=== PATIENT | female | born 1975 | race Caucasian/White ===

== ENCOUNTER → 2016-08-06 | Outpatient (CLI) | payer BC ==
[~2016-08-06] MED LIST: CLON0.5T3 PO; ONDA4TAB7 SL
== END | disposition home or self-care (01) ==
LOC: C.PATHSPEC 11:30
PROVIDERS: ATTEND Obstetrics & Gynecology
DX: R87.611 Atypical squamous cells cannot exclude high grade squamous intraepithelial lesion on cytologic smear of cervix (ASC-H) (principal); N72 Inflammatory disease of cervix uteri; R87.613 High grade squamous intraepithelial lesion on cytologic smear of cervix (HGSIL); R87.612 Low grade squamous intraepithelial lesion on cytologic smear of cervix (LGSIL)

== ENCOUNTER → 2016-09-07 | Outpatient (CLI) | payer BC ==
[2016-09-07 16:38] LABS: BASO % 0.5 %; BASO ABS # 0.04 K/uL (0-0.2); COMPLETE YES; EOS % 1.5 %; IG% 0.1 %; LYMPH % 35.1 %; LYMPH ABS # 2.58 K/uL (1.2-3.4); MEAN CELL VOLUME 86.5 fL (80-100); MEAN CORPUSCULAR HEMOGLOBIN 29.3 pg (25-34); MEAN CORPUSCULAR HGB CONC 33.9 g/dl (32-36); MEAN PLATELET VOLUME 9.4 fL (7.4-10.4); MONO % 7.1 %; NEUT % 55.7 %; PLATELET COUNT 240 K/uL (130-400); RED BLOOD COUNT 4.16 M/uL (4.2-5.4); WHITE BLOOD COUNT 7.35 K/uL (4.8-10.8)
[2016-09-07 17:01] LABS: ALT/SGPT 18 U/L (12-78); AST/SGOT 16 U/L (15-37); BLOOD UREA NITROGEN 12 mg/dl (7-18); BUN/CREATININE RATIO 18.5 (10-20); CARBON DIOXIDE 28 mmol/L (21-32); CHLORIDE 107 mmol/L (98-107); CREATININE 0.67 mg/dl (0.60-1.20); GLUCOSE 99 mg/dl (70-99); POTASSIUM 4.4 mmol/L (3.5-5.1); SODIUM 142 mmol/L (136-145)
[2016-09-07 17:04] LABS: ALB/GLOB RATIO 1.1 (0.9-2); ALKALINE PHOSPHATASE 61 U/L (45-117)
== END | disposition home or self-care (01) ==
LOC: C.LAB 15:44
PROVIDERS: ATTEND Obstetrics & Gynecology Gynecologic Oncology
DX: Z01.818 Encounter for other preprocedural examination (principal)

== ENCOUNTER → 2016-12-15 | Outpatient (CLI) | payer BC ==
--- NOTE | 2016-12-15 14:11 | DIAGNOSTIC IMAGING REPORT ---
CERVICAL SPINE 4 OR 5 VIEWS CLINICAL HISTORY: Posterior neck pain status post trauma COMPARISON STUDY: No previous studies for comparison. FINDINGS: The prevertebral soft tissues are normal. No fractures or subluxations are visualized. The bony neural foramina appear patent bilaterally. IMPRESSION: Unremarkable conventional radiographic evaluation of the cervical spine Electronically signed by: Fernando Majano M.D. 12/15/2016 2:09 PM Dictated Date/Time: 12/15/2016 2:09 PM
== END | disposition home or self-care (01) ==
LOC: C.RDSM 13:24
PROVIDERS: ATTEND Family Medicine
DX: M54.2 Cervicalgia (principal)

== ENCOUNTER → 2018-02-11 | Outpatient (CLI) | payer OTHER ==
[~2018-02-11] MED LIST changes: -CLON0.5T3 PO; +KLN/5 PO
[2018-02-11 17:40] LABS: BASO % 0.4 %; BASO ABS # 0.03 K/uL (0-0.2); EOS % 1.8 %; EOS ABS # 0.13 K/uL (0-0.5); HEMATOCRIT 38.7 % (37-47); HEMOGLOBIN 12.9 g/dL (12.0-16.0); IG# 0.01 K/uL (0.00-0.02); LYMPH % 35.9 %; LYMPH ABS # 2.63 K/uL (1.2-3.4); MEAN CELL VOLUME 88.2 fL (80-100); MEAN CORPUSCULAR HEMOGLOBIN 29.4 pg (25-34); MEAN CORPUSCULAR HGB CONC 33.3 g/dl (32-36); MEAN PLATELET VOLUME 9.6 fL (7.4-10.4); MONO % 10.2 %; MONO ABS # 0.75 K/uL (0.11-0.59); NEUT % 51.6 %; NEUT ABS # 3.78 K/uL (1.4-6.5); PLATELET COUNT 250 K/uL (130-400); RED CELL DISTRIBUTION WIDTH CV 14.2 % (11.5-14.5); RED CELL DISTRIBUTION WIDTH SD 46.1 fL (36.4-46.3); WHITE BLOOD COUNT 7.33 K/uL (4.8-10.8)
== END | disposition home or self-care (01) ==
LOC: C.LAB1850 16:56
PROVIDERS: ATTEND Obstetrics & Gynecology
DX: O02.1 Missed abortion (principal)

== ENCOUNTER → 2018-02-21 | Outpatient (CLI) | payer OTHER | END | disposition home or self-care (01) | LOC: C.LAB1850 12:26 | PROVIDERS: ATTEND Obstetrics & Gynecology | DX: O02.1 Missed abortion (principal) ==

== ENCOUNTER → 2018-03-01 | Outpatient (CLI) | payer OTHER | END | disposition home or self-care (01) | LOC: C.LAB1850 16:43 | PROVIDERS: ATTEND Obstetrics & Gynecology | DX: O20.9 Hemorrhage in early pregnancy, unspecified (principal) ==

== ENCOUNTER 2020-04-12 06:00 | Observation (INO) ==
--- NOTE | 2020-03-19 09:21 | PAT Medication Instructions ---
Medication Instructions Date of Service March 19, 2020 Home Medications multivitamin 1 cap PO QAM escitalopram oxalate 10 mg tablet 5 mg PO QPM DO NOT take the morning of surgery multivitamin 1 cap PO QAM Take evening before surgery escitalopram oxalate 10 mg tablet 5 mg PO QPM Other Notes If you have any questions please call us at [phone] or [phone] or [phone] or [phone]
--- NOTE | 2020-03-20 15:50 | Anesthesiology Consultation ---
Date of Service March 20, 2020 Assessment & Plan (1) Encounter for pre-operative examination: - Per assessment on 03/20: Travel screen negative. No known COVID-19 positive contacts or current COVID-19 related symptoms. Surgeon arranging preop COVID testing (scheduled 04/09, plan to be done at [place]). Awaiting results. - Check test AM DOS Chart Review Chart Review: Acceptable Risk for Surgery and Patient seen in Pre Admission Testing Teaching & Discussion Pre-Anesthesia Teaching/Discussion Notes: Instructed NPO after midnight before surgery,except medications with 15 cc of water. Medication instructions provided according to the PAT guidelines. History Surgery Operation Date: 04/12/20 08:50 Proposed Procedures p Robotic Total Laparoscopic Hysterectomy - Tamara Gaspar MD, FACOG Height/Weight Height: 5 ft 5 in Weight: 59.9 kg Allergies Allergy/AdvReac Type Severity Reaction Status Date / Time No Known Allergies Allergy Verified 03/20/20 15:04 Medications Home Medications Medication Instructions Recorded Confirmed Last Taken multivitamin 1 cap PO QAM 10/25/18 03/20/20 12/20/18 escitalopram oxalate 10 mg tablet 5 mg PO QPM tab 01/08/20 03/20/20 Unknown Past Medical History Medical History Anxiety Depression Eczema Meniere's disease of right ear Migraine Severe cervical dysplasia, histologically confirmed Exercise / Class Metabolic Activity II 4-5 Yardwork/Stairs/Walk up hill Past Family History Family History Mother Family history of reaction to anesthesia nausea/vomiting Family hx colonic polyps Anxiety Grandmother (Maternal) Family hx of colon cancer Father Family hx colonic polyps Anxiety Sister Anxiety Past Surgical History Surgical History H/O LEEP 2016 History of appendectomy History of colonoscopy History of colposcopy History of rhinoplasty History of surgery VESITIBULAR NERVE SECTION WITH RIGHT CRANIOTOMY (2012) TX FOR MENIERE DISEASE Status post hysteroscopic polypectomy [email or web address] Past Anesthesia History No Hx of Anesthesia Complications (except post-op nausea) Mother- post-op nausea History of PONV History of PONV (+ nausea) and Hx of Motion Sickness Social History Smoking Status: Never smoker Do You Dip or Chew Tobacco: No Hx Alcohol Use: Yes Alcohol type: wine alcohol intake frequency: holidays/special occasions only Hx Substance Use: No substance use type: does not use Review of Systems Patient denies chest pain, shortness of breath, dyspnea on exertion, fever, chills, cough, wheezing, palpitations. Physical Exam Vital Signs VITALS BP 99/61 (per patient, chronic low BP's in the 90's/60's) P 84 TEMP 98.7 SP02 96%RA RESP 16 PHYSICAL Full neck and c-spine range of motion. Full TMJ range of motion. TMD 3.5 finger breaths Mallampati Score 1 Dentition: intact, + crown (plan for crown prior to surgery approximately 03/29- surgeon's office made aware) Lungs: clear throughout to auscultation Cardiac: regular rate and rhythm, no murmurs noted Spine: normal Extremities: no edema Testing Laboratory Results 03/20/20 16:11 Blood Type O Positive 03/20/20 16:11 Antibody Screen NEGATIVE 03/20/20 16:11
[2020-03-20 16:30] LABS: Basophils # (auto) 0.03 K/uL (0-0.2); Basophils % (auto) 0.5 %; Eosinophils # (auto) 0.09 K/uL (0-0.5); Eosinophils % (auto) 1.5 %; Hematocrit (blood only) 38.9 % (37-47); Hemoglobin 12.9 g/dL (12.0-16.0); Immature Granulocytes # (auto) 0.01 K/uL (0.00-0.02); Immature Granulocytes % (auto) 0.2 %; Lymphocytes # (auto) 2.73 K/uL (1.2-3.4); Lymphocytes % (auto) 45.2 %; Mean Corpuscular Hemoglobin 30.2 pg (25-34); Mean Corpuscular Hgb Conc 33.2 g/dL (32-36); Mean Corpuscular Volume 91.1 fL (80-100); Mean Platelet Volume 9.1 fL (7.4-10.4); Monocytes # (auto) 0.47 K/uL (0.11-0.59); Monocytes % (auto) 7.8 %; Neutrophils # (auto) 2.71 K/uL (1.4-6.5); Neutrophils % (auto) 44.8 %; Platelet Count 260 K/uL (130-400); RDW Coefficient of Variation 12.1 % (11.5-14.5); RDW Standard Deviation 40.5 fL (36.4-46.3); Red Blood Count 4.27 M/uL (4.2-5.4); White Blood Count 6.04 K/uL (4.8-10.8)
[~2020-04-12 06:00] MED LIST changes: +CEFAZOLIN 2000MG 2,000 MG/15 ML SYR IV SCH; -KLN/5 PO; +LACTATED RINGER'S 1,000 ML IV SCH; -ONDA4TAB7 SL; +PHENAZOPYRIDINE HCL 200 MG TAB PO SCH
[2020-04-12] MEDS ORDERED: MIDAZOLAM HCL 1 MG/ML 2ML VIAL ONE (06:52)
[2020-04-12] MEDS ORDERED: fentaNYL citrate 100 MCG/2 ML VIAL ONE (06:52)
[2020-04-12] MEDS ORDERED: ACETAMINOPHEN 1000 MG/100 ML IV IV ONE (06:58)
[2020-04-12] MEDS ORDERED: SCOPOLAMINE 1.5 MG TDSY TD ONE ×2 (06:58→06:59)
[2020-04-12] MEDS ORDERED: ATROPINE SULFATE 0.1 MG/ML 10ML SYR IV PRN (06:59)
[2020-04-12] MEDS ORDERED: fentaNYL citrate 100 MCG/2 ML VIAL IV PRN (06:59)
[2020-04-12] MEDS ORDERED: ePHEDrine sulfate 50 MG/ML AMP IV PRN (06:59)
[2020-04-12] MEDS ORDERED: ROCURONIUM BROMIDE 10 MG/ML 5 ML VIAL IV ONE ×4 (06:59)
[2020-04-12] MEDS ORDERED: PROPOFOL IV EMULSION 10 MG/ML 20 ML VIAL IV ONE (06:59)
[2020-04-12] MEDS ORDERED: ONDANSETRON INJ 2 MG/ML 2 ML VIAL IV PRN ×2 (06:59→10:13)
[2020-04-12] MEDS ORDERED: LIDOCAINE HCL 2% 2 ML VIAL/AMP(20MG/ML) INFIL ONE (06:59)
[2020-04-12] MEDS ORDERED: ONDANSETRON INJ 2 MG/ML 2 ML VIAL ONE ×2 (07:01→09:30)
[2020-04-12] MEDS ORDERED: DEXAMETHASONE SOD INJ 4 MG/ML VIAL ONE (07:01)
[2020-04-12 07:02] LABS: Pregnancy Test, Serum Negative (Negative)
--- NOTE | 2020-04-12 07:09 | History & Physical Bridge Note ---
Date of Service April 12, 2020 History & Physical Bridge Note I have examined the patient, reviewed the History & Physical and in the interval since the performance of the History & Physical I have noted the following changes of clinical significance: no changes noted
[2020-04-12] MEDS ORDERED: NEOSTIGMINE METHYLSULFATE 5 MG/5 ML SYR ONE (08:22)
[2020-04-12] MEDS ORDERED: GLYCOPYRROLATE 0.2 MG/ML VIAL ONE (08:22)
[2020-04-12] MEDS ORDERED: SURGICEL ABSORB HEMOSTAT 2IN X 14IN TOP ONE (09:15)
[2020-04-12] MEDS ORDERED: BUPIVACAINE 0.5 % 5 MG/1 ML MPF 30ML VIAL INJ ONE (09:16)
[2020-04-12] MEDS ORDERED: FLOSEAL HEMOSTATIC MATRIX 10ML TOP ONE (09:21)
--- NOTE | 2020-04-12 09:41 | Post Operative Brief Note ---
PG Immediate Post Op with CF Date of Surgery April 12, 2020 Pre & Post Diagnosis Operation Date: 04/12/20 07:30 Pre-Op Diagnosis: Abnormal Uterine Bleeding, Menometrorrhagia Post-Op Diagnosis: Abnormal Uterine Bleeding,Menormetrorrhagia I identified the patient and participated in the time-out.: Yes Procedure Operation Date: 04/12/20 07:30 Actual Procedures p Robotic Assisted Total Laparoscopic Hysterectomy Bilateral Salpingectomy with Cystoscopy(Not Applicable) - Tamara Gaspar MD, FACOG Surgeon Tamara Gaspar MD, FACOG Meat Counter Worker RN Estimated Blood Loss 50 Findings Consistent with Post-Op Diagnosis (small bowel adhesions to right uterus and right anterior abdominal wall as well as omental adhesions to right lower quadrant. normal tubes and ovaries bilaterally. normal uterus, normal liver edge and gallbladder. cysto findings with normal bladder filling and normal ureteral jets ) Fluids 700 Specimens Specimen Description: Permanent Specimen A: Uterus, Cervix and bilateral Fallopian Tubes (Please Compare the Pathology from , which shows Placenta Tissue) Drains Jacinto Catheter (18fr inserted at start of case by Dr. Gaspar without difficulty, changed at end post cystoscopy. anesthesia monitoring output during case) Anesthesia Type General Complications none Disposition Accompanied Patient To Recovery: No Disposition: Recovery Room
--- NOTE | 2020-04-12 09:52 | Operative Report ---
PG Post Operative Report Pre & Post Diagnosis Operation Date: 04/12/20 07:30 Pre-Op Diagnosis: Abnormal Uterine Bleeding, menometrorrhagia Post-Op Diagnosis: Abnormal Uterine Bleeding, menometrorrhagia I identified the patient and participated in the time-out.: Yes Procedure Operation Date: 04/12/20 07:30 Actual Procedures Robotic Assisted Total Laparoscopic Hysterectomy, Bilateral Salpingectomies, Cystoscopy, Lysis of adhesions. Surgeon Tamara Gaspar MD, FACOG Geodesy Teacher RN Estimated Blood Loss 50 Findings Consistent with Post-Op Diagnosis (small bowel adhesions to right uterus and right anterior abdominal wall as well as omental adhesions to right lower quadrant. normal tubes and ovaries bilaterally. normal uterus, normal liver edge and gallbladder. cysto findings with normal bladder filling and normal ureteral jets ) Fluids 700 Specimens uterus, cervix and bilateral fallopian tubes Drains guillermo Anesthesia Type General Complications none Disposition Accompanied Patient To Recovery: No Disposition: Recovery Room Indications 45yo with cc of aub and menometrorrhagia who desires definitive surgical management. This has been for more than one year. She declines do nothing, medications, hormone iud as options. Due to her persistent metrorrhagia I did not favor an endometrial ablation for her. She opts for hysterectomy. Of note on prior D&C done for these symptoms in december 2018, there was mention of possible old/necrotic placental site tissue. Description of Procedure The patient was taken to the operating room and identified. After adequate general anesthesia was obtained she was placed in the dorsolithotomy position and prepped and draped in the usual sterile fashion. Attention was turned to the patient's vagina where a weighted speculum and anterior retractor were used to visualize the cervix. The cervix was grasped on its anterior lip with an allis clamp. A single interrupted suture of 0-vicryl was placed at the 3 o'clock position and tied down. The uterus sounded to 7cm. The V-Care uterine manipulator was placed through the cervical os into the uterine cavity and the balloon was inflated. The cup was tied down against the cervix with the suture material and the stabilizing cup was placed. A guillermo catheter had already been placed under sterile conditions. The retractors were removed and attention was then turned to the patient's abdomen. The scalpel was used to make a supraumbilical skin incision and the veress needle was placed intraperitoneally with an opening pressure of 4mm Hg. A CO2 pneumoperitoneum was created. The 12mm optical trocar attached to the laparoscope was then placed intraperitoneally and the patient was placed in steep Trendelenburg. The pelvis and abdomen were inspected with the findings as noted above. The adhesions of the small bowel and omentum on the right mid pelvis was in area that right trocar woud need to be placed. A left Da Anuj trocar sites was created on the left of the midline by first make skin incisions with the scalpel and then placing under direct visualization a Da Anuj trocar. A blunt probe was used to move the bowel away from the planned operative sites. Using the scissor with cautery adhesions were taken down with care both bluntly and sharply to allow to space on right anterior mid wall to introduce trocar. Once that was accomplished a second Da Anuj trocar was placed after making a skin incision under direct visualization. This was a little more medial that typical due to remaining adhesions involving the small bowel that were not taken down. The laparoscope was removed and the Da Anuj Robot was brought to the patient's bedside. The appropriate arms were connected to the appropriate trocars. The camera was introduced. The monopolar edin and the fenestrated bipolar instruments were brought through instrument arms #1 and #2 respectively under direct visualization. The surgeon then went to the console. The uterus was elevated and filmy adhesions attaching small bowel to right side of uterus were taken down. Also with blunt dissection the right adnexal area was uncovered. Using manipulation from below the right uterine ovarian/fallopian tube/round ligament complex was identified. The ureter was seen coursing well below the planned operative site. The mesosalpinx on the right was opened up into to transect the fallopian tube to its fimbriated end. This uterine ovarian/round ligament complex was coagulated and transected gradually with the bipolar cautery followed by the monopolar edin. The anterior and posterior leaves of the broad ligament were opened and the bladder flap was begun anteriorly towards the anterior midline. The uterine artery pedicle was bluntly skeletonized. With the bladder well away from the planned operative sites, the uterine artery pedicle was cauterized. Attention was then turned to the left fallopian tube which was dissected from mesosalpinx from the fimbriated end to the cornua. The uterine ovarian/round ligament complex which was identified and sequentially cauterized and cut in a similar manner. The broad ligament leaves were opened up on this side and a bladder flap was created from this side meeting in the midline anteriorly. The bladder was pushed away bluntly from the planned colpotomy site. The uterine artery pedicle was skeletonized on this side and the vessels were coagulated. The were then transected and sequentially the cardinal ligament attachments were also coagulated and cut. The pedicle was pushed well away from the planned colpotomy. Attention was returned to the right uterine artery pedicle which was then re-cauterized and cut sequentially and the cardinal l igament attachments were also coagulated and transected. The bladder had been dissected and pushed well away from the planned colpotomy site. The uterus was raised and the colpotomy was begun posteriorly and carried around circumferentially to transect the cervix from the upper vagina. The specimen was then brought out vaginally and a sponge was placed in the vagina to maintain the pneumoperitoneum. Operative sites were oozing at cuff and bleeding sites were coagulated. The monopolar edin were replaced with a large needle service car driver and the 2-0 V-Lock 90 suture was brought through the vagina. The cuff was closed in a routine fashion with this suture material and back sutures were placed. The sponge was removed from the vagina and the pneumoperitoneum was maintained. The suture material was cut and the needle was removed from the abdomen through instrument arm #1. After the needle was removed the suction manager trade marketing was brought through the right trocar and the pelvis was irrigated and the operative sites were hemostatic. The pneumoperitoneum was let down and some oozing from left cuff area noted. Russel-seal 10cc placed. The cystoscopy was then performed with the findings as noted above and a new guillermo catheter was placed. The camera and all laparoscopic instruments were removed and the robot was then undocked and moved away from the patient's bedside. The CO2 gas was allowed to escape from the patient's abdomen. The trocars were removed. The supraumbilical tissues were reapproximated with 0 vicryl and all skin incisions were closed with 4-0 vicryl in a subcuticular fashion. The incisions were injected with marcaine and dressed with band-aids. At this point the procedure was terminated. The patient was returned to the supine position and transported to the recovery room in sta ble condition. All sponge lap and needle counts were correct x 2. I attest to the content of the Intraoperative Record and any orders documented therein. Any exceptions are noted below. SALES AND EVENTS COORDINATOR Major Procedure Codes Hysterectomy 49791 TLH <250g +S/O Miscellaneous [id number] Cystoscopy
[2020-04-12] MEDS ORDERED: MEPERIDINE HCL 25 MG/ML CARP/VIAL IV STA (09:54)
[2020-04-12] MEDS ORDERED: MEPERIDINE HCL 25 MG/ML CARP/VIAL ONE (09:55)
[2020-04-12] MEDS ORDERED: PROMETHAZINE HCL 12.5 MG in SODIUM CHLORIDE 0.9% 50 ML IV PRN (10:13)
[2020-04-12] MEDS ORDERED: IBUPROFEN 600 MG TAB PO PRN (10:13)
[2020-04-12] MEDS ORDERED: ACETAMINOPHEN 325 MG TAB PO PRN (10:13)
[2020-04-12] MEDS ORDERED: ZOLPIDEM TARTRATE 5 MG TAB PO PRN (10:13)
[2020-04-12] MEDS ORDERED: KETOROLAC 30 MG/ML VIAL IV PRN (10:13)
[2020-04-12] MEDS ORDERED: SIMETHICONE 80 MG CHEW PO PRN (10:13)
[2020-04-12] MEDS ORDERED: OXYCODONE/ACETAMINOPHEN 5mg/325mg TAB PO PRN ×2 (10:13)
[2020-04-12] MEDS ORDERED: LACTATED RINGER'S 1,000 ML IV SCH (10:15)
--- NOTE | 2020-04-12 10:49 | Anesthesiology Progress Note ---
Date of Service April 12, 2020 Anesthesia Post Procedure Vital Signs Vital Signs: Temp Pulse Pulse Resp BP BP Pulse Ox 04/12/20 10:35 63 16 123/66 100 04/12/20 10:25 98.1 F 61 12 128/68 100 04/12/20 10:15 62 12 121/69 100 04/12/20 10:05 66 12 101/69 100 04/12/20 09:55 69 15 122/76 100 04/12/20 09:48 97.0 F L 83 20 112/96 93 04/12/20 06:22 98.6 F 75 18 113/84 97 Pain Intensity Lower Abdomen: Pain Intensity: 4 Transfer of Care Handoff Completed per policy Notes Mental Status: alert / awake / arousable and participated in evaluation Patient Amnestic to Procedure: Yes Nausea / Vomiting: adequately controlled Pain: adequately controlled Airway Patency, RR, SpO2: stable & adequate BP & HR: stable & adequate Hydration State: stable & adequate Anesthetic Complications: no major complications apparent and Pt Satisfied with anesthetic care
[2020-04-12] MEDS ORDERED: CHECK SCOPOLAMINE PATCH PLACEMENT SCH (16:00)
--- NOTE | 2020-04-12 17:13 | Gynecologic Progress Note ---
Date of Service April 12, 2020 Assessment & Plan (1) Menometrorrhagia: (2) Abnormal uterine bleeding (AUB): (3) Post-operative state: reviewed with patient findings at surgery including bowel adhesions. explained course of procedure and showed pt images of her abdomen on computer. reviewed expected postop course and recovery. postop appt was already made and pt reminded of date and time and put in D/C instructions. sent some percocet to pharm and explained use of pain meds and possible SE. patient given time to ask questions and answered to the best of my ability. she had not voided yet but as noted was tolerating liquids. she spoke to her spouse while i was in room. she denied further questions or concerns and asked about criteria for discharge. they were reviewed. just now, called nurse to see her progress but she was unavailable. then received [facility] message also just now and she noted pt doing well, voided, ambulated, eating and not requiring pain meds. Admission and Anticipated Discharge Date Admission Date: April 12, 2020 Subjective Late entry -visted pt in room postop about 2pm today. was doing well. had some nausea but trying to drink water and juice and lorena so far. no pain issues. Physical Exam Constitutional: WD/WN, vitals as above Results & Data ([facility]) Vital Signs (Past 12 Hours) Vital Signs Temp Pulse Pulse Pulse Resp BP BP 04/12/20 14:00 66 18 110/68 04/12/20 13:00 66 18 114/69 04/12/20 12:00 69 16 132/72 04/12/20 11:30 73 16 120/74 04/12/20 11:00 98.2 F 65 16 120/76 04/12/20 10:35 63 16 123/66 04/12/20 10:25 98.1 F 61 12 128/68 04/12/20 10:15 62 12 121/69 04/12/20 10:05 66 12 101/69 04/12/20 09:55 69 15 122/76 04/12/20 09:48 97.0 F L 83 20 112/96 04/12/20 06:22 98.6 F 75 18 113/84 Pulse Ox 04/12/20 14:00 99 04/12/20 13:00 04/12/20 12:00 99 04/12/20 11:30 100 09/25/20 11:00 04/12/20 10:35 04/12/20 10:25 04/12/20 10:15 04/12/20 10:05 04/12/20 09:55 04/12/20 09:48 04/12/20 06:22 97 PG Care Time/CCT Total # of Minutes Spent Total Time Spent with Patient: Total time spent is greater than 50% in coordination of care (as documented) at patient's floor/unit and/or counseling patient: Coding Level of Care Code None Diagnoses Menometrorrhagia N92.1 Abnormal uterine bleeding (AUB) N93.9 Post-operative state Z98.890
--- NOTE | 2020-04-13 10:04 | Discharge Summary ---
Date of Service Date of admission: April 12, 2020 Date of discharge: April 12, 2020 Discharge Data Procedures Performed Operation Date: 04/12/20 07:30 Actual Procedures p Robotic Assisted Total Laparoscopic Hysterectomy Bilateral Salpingectomy (Not Applicable) - Tamara Gaspar MD, FACOG s with Cystoscopy(Not Applicable) - Tamara Gaspar MD, FACOG Hospital Course (1) Abnormal uterine bleeding (AUB): (2) Menometrorrhagia: Patient was admitted and underwent the above stated procedures. Please see her H&P for more detail. The procedures were performed without incident. Her postop recovery and course were uncomplicated and on POD #0 she was stable for discharge to home. She was tolerating a regular diet, voiding and ambulating without difficulty and her pain was well controlled on oral pain medications. Her instructions were reviewed and followup reviewed which was planned for approximately 2 weeks. She was sent appropriate pain medicine scripts to her pharmacy. Coding Level of Care Code None Diagnoses Abnormal uterine bleeding (AUB) N93.9 Menometrorrhagia N92.1
== END 2020-04-12 18:45 | disposition home or self-care (01) ==
LOC: ASU 06:00 → 4N 06:00
DX: H81.01 Meniere's disease, right ear; F41.9 Anxiety disorder, unspecified; N93.9 Abnormal uterine and vaginal bleeding, unspecified; Z11.59 Encounter for screening for other viral diseases; F32.9 Major depressive disorder, single episode, unspecified; N92.1 Excessive and frequent menstruation with irregular cycle